=== PATIENT | male | born 2005 | race Caucasian/White ===

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

== ENCOUNTER 2024-05-26 10:06 | Emergency (ER) | payer BC ==
[~2024-05-26] VITALS: Ht 172.7 cm; Wt 108.9 kg
[~2024-05-26 10:06] MED LIST: LAMICTAL200 MG PO; METHYLPHENIDATE54 MG PO
[2024-05-26] MEDS ORDERED: GUANFACINE HCL E4 MG PO (10:39)
[2024-05-26] MEDS ORDERED: SULTRIDS PO (11:10)
[2024-05-26 11:20] VITALS: BP 135/62
== END 2024-05-26 11:21 | disposition home or self-care (01) ==
LOC: ER 10:06
DX: L05.01 Pilonidal cyst with abscess (principal); Z79.899 Other long term (current) drug therapy
CPT/HCPCS: 10060; 99283-25

== ENCOUNTER 2024-11-22 08:05 | Day surgery (SDC) | payer BC, OTHER ==
[2024-11-22] VITALS (13 sets, daily range): BP systolic 118–147; BP diastolic 78–95
[~2024-11-22] VITALS: Ht 172.7 cm; Wt 104.0 kg
[~2024-11-22 08:05] MED LIST changes: +BUPR150T2 PO; +DOCU100 PO; +GUANFACINE HCL E4 MG PO; +SULTRIDS PO
[2024-11-22] MEDS ORDERED: propofoL 20 ML IV ONE (08:25)
[2024-11-22] MEDS ORDERED: Sugammadex Sodium 200 MG/2ML SDV (100 MG/ML) ONE (08:25)
[2024-11-22] MEDS ORDERED: FentaNYL Citrate 50 MCG/ML 2 ML Injection ONE (08:25)
[2024-11-22] MEDS ORDERED: Ketorolac Tromethamine 30mg Vial ONE (08:26)
[2024-11-22] MEDS ORDERED: Dexamethasone Sod Phos 10 MG/ML 1ML VIAL ONE (08:26)
[2024-11-22] MEDS ORDERED: Rocuronium Bromide 10 MG/ML 5ML Injection IV ONE (08:26)
[2024-11-22] MEDS ORDERED: Ondansetron HCl 2 MG / ML 2ML Vial ONE (08:26)
[2024-11-22] MEDS ORDERED: Lidocaine HCl 1% 5 ML SYR INJ ONE (08:30)
[2024-11-22] MEDS ORDERED: Midazolam HCl 1MG / ML 2ML Vial IV PRN (08:35)
[2024-11-22] MEDS ORDERED: Ampicillin Sod/Sulbactam Sod 3 GM in NS 100 ML IV SCH (08:45)
[2024-11-22] MEDS ORDERED: Lactated Ringer's 1,000 ML IV SCH (08:45)
[2024-11-22] MEDS ORDERED: METPHE18ER PO (08:57)
[2024-11-22] MEDS ORDERED: Bupivacaine 0.5% W/EPI 1:200000 SDV 30 ML Vial ONE (09:10)
[2024-11-22] MEDS ORDERED: Dexmedetomidine HCL 200 MCG / 2 ML ONE (10:10)
[2024-11-22] MEDS ORDERED: OxyCODONE 5 mg/Acetamin 325 mg TABLET PO PRN (11:50)
--- NOTE | 2024-11-22 13:41 | NUR ---
1320 PT DC HOME WITH MOTHER, PT HAD EYE GLASSES, NAUSEA RESOLVED. YESSENIA DRAIN SM EVANS RED DRAINAGE. HANDS ON TEACHING OF DRAIN REVIEWED WITH MOTHER
== END 2024-11-22 13:23 | disposition home or self-care (01) ==
LOC: ORSCMMR 08:05 → ORD 09:30 → ORSCMMR 13:23
PROVIDERS: Surgery
PROC: 0JB90ZZ Excision of Buttock Subcutaneous Tissue and Fascia, Open Approach (ICD-10-PCS; principal; 2024-11-22 09:30)
PROC: 0HX8XZZ Transfer Buttock Skin, External Approach (ICD-10-PCS; principal; 2024-11-22 09:30)
DX: L05.01 Pilonidal cyst with abscess (principal); F90.9 Attention-deficit hyperactivity disorder, unspecified type; F41.9 Anxiety disorder, unspecified; F95.2 Tourette's disorder; F32.A Depression, unspecified
CPT/HCPCS: 88304; A9270; J0295; J1100; J1885; J2250; J2405; J2704; J3010; J7120